=== PATIENT | female | born 1990 | race Hispanic/Latino ===

== ENCOUNTER → 2017-12-16 | Outpatient (CLI) | payer OTHER | LOC: M RAD 15:30 | DX: J34.2 Deviated nasal septum (principal); J31.0 Chronic rhinitis | CPT/HCPCS: 70486 ==

== ENCOUNTER → 2018-04-26 | Outpatient (REF) | payer OTHER ==
[2018-04-27 13:35] LABS: CHLAMYDIA DNA AMPLIFICATION NEGATIVE (NEGATIVE); GC DNA AMPLIFICATION NEGATIVE (NEGATIVE)
== END ==
LOC: M SFHCLERA 17:48
DX: R39.9 Unspecified symptoms and signs involving the genitourinary system (principal); N89.8 Other specified noninflammatory disorders of vagina

== ENCOUNTER 2018-05-31 07:52 | Day surgery (SDC) | payer OTHER ==
[2018-05-31] MEDS ORDERED: PROPOFOL 200 MG/20 ML VIAL As Ordered (08:57)
[2018-05-31] MEDS ORDERED: ONDANSETRON 4MG/2ML VIAL (J2405) As Ordered (08:57)
[2018-05-31] MEDS ORDERED: ROCURONIUM BROMIDE 50 MG/5 ML VIAL As Ordered (08:57)
[2018-05-31] MEDS ORDERED: dexameTHASONE 4 MG/ML 1ML VIAL (J1100) As Ordered ×2 (08:57)
[2018-05-31] MEDS ORDERED: LIDOCAINE 2% INJ 100 MG/5 ML SDV (FOR ANES.) As Ordered (08:57)
[2018-05-31 09:13] LABS: CONTROL LINE UCG INT CTR LINE PRESENT; URINE PREG TEST NEGATIVE (NEGATIVE)
[2018-05-31] MEDS ORDERED: fentaNYL 250 MCG/5 ML INJECTION (J3010) As Ordered (09:18)
[2018-05-31] MEDS ORDERED: MIDAZOLAM INJ 2 MG/2 ML VIAL (J2250) As Ordered (09:18)
[2018-05-31] MEDS: LR 1,000 ML IV (09:20)
[2018-05-31] MEDS: OXYMETAZOLINE NASAL SPRAY (AFRIN) As Ordered (09:59)
[2018-05-31] MEDS: METHYLENE BLUE 0.5% (5MG/ML) 10 ML AMP (PROVAYBLUE)(Q9968 PER 1MG) As Ordered (11:07)
[2018-05-31] MEDS: LIDOCAINE W/EPINEPHRINE 1% 20ML VIAL As Ordered (11:07)
[2018-05-31] MEDS ORDERED: fentaNYL 100 MCG/2 ML INJECTION (J3010) As Ordered (11:44)
[2018-05-31] MEDS ORDERED: ONDANSETRON 4MG/2ML VIAL (J2405) IV (11:45)
[2018-05-31] MEDS ORDERED: LR 1,000 ML IV (11:45)
[2018-05-31] MEDS ORDERED: NORCO, ANEXSIA 5/325MG TABLET (HYDROcodone/ACETAMINOPHEN) PO (11:45)
[2018-05-31] MEDS: fentaNYL 100 MCG/2 ML INJECTION (J3010) IV ×2 (11:46→11:51)
[2018-05-31] MEDS ORDERED: IBUPROFEN 800 MG TAB PO (12:00)
[2018-05-31] MEDS: PERCOCET 5MG/325MG TAB PO (12:30)
== END 2018-05-31 15:41 | disposition home or self-care (01) ==
LOC: M SDC 15:41
DX: J34.2 Deviated nasal septum (principal); J31.0 Chronic rhinitis; F41.9 Anxiety disorder, unspecified; F32.9 Major depressive disorder, single episode, unspecified; T88.59XD Other complications of anesthesia, subsequent encounter; Z79.899 Other long term (current) drug therapy
CPT/HCPCS: 30520

== ENCOUNTER → 2018-06-09 | Outpatient (REF) | payer OTHER ==
[~2018-06-09] MED LIST: ORSYTAB PO; RANI150T; ZOLO50TA PO; ZYRT10CA5 PO
[2018-06-09 17:43] LABS: URINE PREG TEST NEGATIVE (NEGATIVE)
[2018-06-09 17:53] LABS: APPEARANCE, URINE CLEAR (CLEAR); BACTERIA, URINE AUTO 1+ (NEGATIVE); BILIRUBIN, URINE AUTO NEGATIVE (NEGATIVE); BLOOD, URINE BLOOD 1+ (NEGATIVE); COLOR, URINE YELLOW (YELLOW); GLUCOSE, URINE (UA) AUTO NEGATIVE (NEGATIVE); KETONE, URINE AUTO NEGATIVE (NEGATIVE); LEUKOCYTE ESTERASE, URINE AUTO NEGATIVE (NEGATIVE); MUCUS, URINE SMALL (NEGATIVE); NITRITE, URINE AUTO NEGATIVE (NEGATIVE); PROTEIN, URINE AUTO NEGATIVE (NEGATIVE); RBC, URINE AUTO 7 /HPF (0-3); SQUAMOUS EPITHELIAL CELL UR AU 1 /HPF (0-6); UROBILINOGEN, URINE AUTO 0.2 mg/dL (0.0-2.0); WBC, URINE AUTO 0 /HPF (0-3)
== END ==
LOC: M SMT 16:21
PROVIDERS: ATTEND Nurse Practitioner Family
DX: R31.29 Other microscopic hematuria (principal)

== ENCOUNTER 2019-03-12 12:13 | Emergency (ER) | payer OTHER ==
[~2019-03-12] VITALS: Ht 157.5 cm; Wt 79.5 kg
[2019-03-12 14:26] VITALS: BP 117/75
== END 2019-03-12 14:23 | disposition home or self-care (01) ==
LOC: M ED 12:13
DX: F41.0 Panic disorder [episodic paroxysmal anxiety] (principal); Z63.31 Absence of family member due to military deployment; J30.2 Other seasonal allergic rhinitis; Z79.899 Other long term (current) drug therapy

== ENCOUNTER 2022-08-07 19:07 | Emergency (ER) | payer OTHER ==
[~2022-08-07] VITALS: Ht 157.5 cm; Wt 84.2 kg
[2022-08-07] MEDS ORDERED: NS 1,000 ML IV ONE (20:15)
[2022-08-07] MEDS ORDERED: methylPREDNISolone 125MG 2ML VIAL IV ONE (20:15)
[2022-08-07] MEDS ORDERED: diphenhydrAMINE 50MG/ML VIAL IV STA (20:15)
[2022-08-07] MEDS ORDERED: FAMOTIDINE 20 MG TAB PO ONE (22:30)
[2022-08-07] MEDS ORDERED: FAMO1TAB11 PO ×2 (22:33→22:51)
[2022-08-07] MEDS ORDERED: PRED20TA PO ×2 (22:33→22:51)
[2022-08-07 22:45] VITALS: BP 123/85
== END 2022-08-07 22:45 | disposition home or self-care (01) ==
LOC: M ED 19:07
DX: L50.9 Urticaria, unspecified (principal); J45.909 Unspecified asthma, uncomplicated; Z91.010 Allergy to peanuts; Z79.52 Long term (current) use of systemic steroids; Z79.899 Other long term (current) drug therapy
CPT/HCPCS: 96361; 96374; 99283; J1200; J2930

== ENCOUNTER → 2023-02-09 | Outpatient (CLI) | payer OTHER ==
[~2023-02-09] MED LIST changes: +FAMO1TAB11 PO; +PRED20TA PO
== END ==
LOC: M WHC 12:33
PROVIDERS: ATTEND Family Medicine
DX: N64.4 Mastodynia (principal)
CPT/HCPCS: 77066; G0279

== ENCOUNTER 2023-02-12 14:36 | Emergency (ER) | payer OTHER ==
[~2023-02-12] VITALS: Ht 157.5 cm; Wt 87.8 kg
[2023-02-12] MEDS ORDERED: TRAM50TA2 (18:43)
[2023-02-12] MEDS ORDERED: IBUP-1022 (18:43)
[2023-02-12] MEDS ORDERED: BUPR150T12 (18:43)
[2023-02-12 19:49] VITALS: BP 120/74; TEMP 97; O2SAT 100
== END 2023-02-12 20:00 | disposition home or self-care (01) ==
LOC: M ED 14:36
DX: Z47.89 Encounter for other orthopedic aftercare (principal); M25.531 Pain in right wrist; Z91.010 Allergy to peanuts; Z91.048 Other nonmedicinal substance allergy status; Z79.899 Other long term (current) drug therapy

== ENCOUNTER → 2025-05-16 | Outpatient (CLI) | payer OTHER ==
[~2025-05-16] MED LIST changes: +BUPR150T12; +IBUP600T42; +TRAM50TA2
== END ==
LOC: M PLAIMG 14:38
PROVIDERS: ATTEND Internal Medicine
DX: R01.1 Cardiac murmur, unspecified (principal)